=== PATIENT | female | born 1950 | race Caucasian/White ===

== ENCOUNTER → 2016-11-11 | Outpatient (CLI) | payer MEDICARE, MEDICAID ==
[~2016-11-11] MED LIST: ACET325T9 PO; DIPH25CA58 PO; EXEM25TA PO; LORA0.5P MC; OMEP20CA9 PO; P EP PO; TRAM50TA PO
--- NOTE | 2016-11-11 09:25 | RAD ---
DATE: 11/11/2016 EXAM: MAMMO REINA SCREEN LT HISTORY: Right breast cancer COMPARISON: 11/09/2015 This study was interpreted with the benefit of Computerized Aided Detection (CAD). The breast parenchyma shows scattered fibroglandular densities. Breast parenchyma level B. FINDINGS: 2-D and 3-D tomosynthesis imaging was performed in CC and MLO projections. No new or enlarging breast densities are seen. Benign type calcifications are present. No suspicious microcalcifications have developed. IMPRESSION: Stable left mammograms without evidence of malignancy. BI-RADS CATEGORY: 2 BENIGN FINDING(S) RECOMMENDED FOLLOW-UP: 12M 12 MONTH FOLLOW-UP PQRS compliance statement: Patient information was entered into a reminder system with a target due date for the next mammogram. Mammography is a sensitive method for finding small breast cancers, but it does not detect them all and is not a substitute for careful clinical examination. A negative mammogram does not negate a clinically suspicious finding and should not result in delay in biopsying a clinically suspicious abnormality. "Our facility is accredited by the [employer] Mammography [employer]."
== END | disposition home or self-care (01) ==
LOC: MAMMO 08:49
PROVIDERS: ATTEND Family Medicine
DX: Z12.31 Encounter for screening mammogram for malignant neoplasm of breast (principal); C50.911 Malignant neoplasm of unspecified site of right female breast
CPT/HCPCS: 77063; G0202; 77067

== ENCOUNTER → 2017-11-21 | Outpatient (CLI) | payer MEDICARE, MEDICAID ==
--- NOTE | 2017-11-21 14:09 | RAD ---
DATE: 11/21/2017 EXAM: MAMMO REINA SCREEN LT HISTORY: Right breast cancer, left breast screening COMPARISON: 11/11/2016 This study was interpreted with the benefit of Computerized Aided Detection (CAD). The breast parenchyma shows scattered fibroglandular densities. Breast parenchyma level B. FINDINGS: 2-D and 3-D tomosynthesis imaging was performed in CC and MLO projections. No new or enlarging breast densities are seen. Several benign type calcifications are present. No suspicious microcalcifications have developed. IMPRESSION: Stable left mammograms without evidence of malignancy. BI-RADS CATEGORY: 2 BENIGN FINDING(S) RECOMMENDED FOLLOW-UP: 12M 12 MONTH FOLLOW-UP PQRS compliance statement: Patient information was entered into a reminder system with a target due date for the next mammogram. Mammography is a sensitive method for finding small breast cancers, but it does not detect them all and is not a substitute for careful clinical examination. A negative mammogram does not negate a clinically suspicious finding and should not result in delay in biopsying a clinically suspicious abnormality. "Our facility is accredited by the [employer]."
== END | disposition home or self-care (01) ==
LOC: MAMMO 10:03
PROVIDERS: ATTEND Family Medicine
DX: Z12.31 Encounter for screening mammogram for malignant neoplasm of breast (principal); Z85.3 Personal history of malignant neoplasm of breast; Z86.2 Personal history of diseases of the blood and blood-forming organs and certain disorders involving the immune mechanism
CPT/HCPCS: 77063; 77067

== ENCOUNTER → 2018-12-12 | Outpatient (CLI) | payer MEDICARE, MEDICAID ==
[~2018-12-12] MED LIST changes: +OMEP20CA10 PO; -OMEP20CA9 PO
--- NOTE | 2018-12-14 17:27 | RAD ---
Examination: MAMMO REINA SCREEN LT History: Right mastectomy in 2008. Annual screening. COMPARISON/CORRELATION: 11/06/2014, 11/03/2016, 11/21/2017 left unilateral screening mammogram FINDINGS: Full-field digital screening mammography was performed bilaterally. MLO and CC projections bilaterally were provided. CAD and tomosynthesis were performed. There are scattered areas of fibroglandular density. Benign appearing axillary lymph node(s) are present. There are no suspicious calcification clusters. No new masses or new distortion. IMPRESSION: BI-RADS Category: 1: Negative. Annual mammography is recommended. Patient information is entered into reminder system with a target due date for the next screening mammogram. Mammography is the most sensitive method for finding small breast cancers, but it does not detect them all and is not a substitute for careful clinical examination. A negative mammogram does not negate a clinically suspicious finding and should not result in delay in biopsying a clinically suspicious abnormality. "Our facility is accredited by the [employer]amm[employer]." Electronically signed by: Eduard Dan MD (12/14/2018 5:24 PM) [facility]
== END | disposition home or self-care (01) ==
LOC: MAMMO 09:46
PROVIDERS: ATTEND Family Medicine
DX: Z12.31 Encounter for screening mammogram for malignant neoplasm of breast (principal)
CPT/HCPCS: 77063; 77067

== ENCOUNTER → 2020-01-16 | Outpatient (CLI) | payer MEDICARE, MEDICAID ==
[~2020-01-16] MED LIST changes: -OMEP20CA10 PO; +OMEP20CA16 PO
--- NOTE | 2020-01-16 18:18 | RAD ---
EXAMINATION: MAMMO REINA SCREEN LT History: Reason: SCREENING MAMMOGRAM 3D /right mastectomy in 2008 COMPARISON/CORRELATION: 11/09/2015, 11/03/2016, 11/21/2017, 12/13/2018 Technique: Routine left unilateral digital mammogram views were obtained. CAD was utilized. 3-D tomosynthesis images were acquired. Findings: Breast Tissue Density B : There are scattered areas of fibroglandular density. There are no dominant masses, suspicious microcalcifications, or architectural distortion. IMPRESSION: No mammographic evidence of malignancy. Recommend routine screening. BI-RADS category 1: Negative. The images were reviewed with computer aided detection. Patient information is entered into the reminder system with a target due date for the next screening mammogram. Mammography is the most sensitive method for finding small breast cancers, but it does not detect them all and is not a substitute for careful clinical examination. A negative mammogram does not negate a clinically suspicious finding and should not result in delay in biopsying a clinically suspicious abnormality. "Our facility is accredited by the [employer] Mammography [employer] Electronically signed by: Eduard Dan MD (01/16/2020 6:14 PM) [facility]
== END | disposition home or self-care (01) ==
LOC: MAMMO 14:06
PROVIDERS: ATTEND Family Medicine
DX: Z12.31 Encounter for screening mammogram for malignant neoplasm of breast (principal); Z90.11 Acquired absence of right breast and nipple
CPT/HCPCS: 77063; 77067

== ENCOUNTER → 2021-01-18 | Outpatient (CLI) | payer MEDICARE, MEDICAID ==
--- NOTE | 2021-01-18 09:30 | RAD ---
EXAM: Left breast screening mammogram with tomosynthesis. HISTORY: 70-year-old female with a history of right breast cancer, status post right mastectomy, pres ents for annual mammography. TECHNIQUE: Full-field digital craniocaudal and mediolateral oblique 2D and 3D tomosynthesis images of the left breast are obtained for evaluation. Computer aided detection was applied. COMPARISON: 01/16/2020 and 12/12/2018 BREAST PARENCHYMAL DENSITY: Level B - Scattered fibroglandular densities. FINDINGS: There is no new suspicious mass, microcalcification or region of architectural distortion. IMPRESSION: BI-RADS Category 2: Benign finding(s). RECOMMENDATION: Annual mammography is recommended. If your mammogram demonstrates that you have dense breast tissue, which could hide abnormalities, and if you have other risk factors for breast cancer that have been identified, you might benefit from s upplemental screening tests that may be suggested by your ordering physician. Dense breast tissue, i n and of itself, is a relatively common condition. This information is not provided to cause undue c oncern, but rather to raise your awareness and to promote discussion with your physician regarding th e presence of other risk factors, in addition to dense breast tissue. A report of your mammography re sults will be sent to you and your physician. You should contact your physician if you have any ques tions or concerns regarding this report. Mammography is a sensitive method for finding small breast cancers, but it does not detect them all a nd is not a substitute for careful clinical examination. A negative mammogram does not negate a clin ically suspicious finding and should not result in delay in biopsying a clinically suspicious abnorma lity. PQRS compliance statement - Patient information was entered into a reminder system with a target due date for the next mammogram. "Our facility is accredited by the [employer] Mammography [employer]." Electronically signed by: Karrie Cross MD (01/18/2021 9:27 AM) [id number]
== END ==
LOC: MAMMO 08:46
PROVIDERS: ATTEND Family Medicine
DX: Z12.31 Encounter for screening mammogram for malignant neoplasm of breast (principal)
CPT/HCPCS: 77063; 77067

== ENCOUNTER → 2021-02-18 | Outpatient (CLI) | payer MEDICARE, MEDICAID ==
[2021-02-18 09:54] LABS: BASO # 0.2 x10^3/uL (0.0-0.2); BASO % 2 % (0-3); EOS # 0.6 x10^3/uL (0.0-0.7); EOS % 7 % (0-3); HEMATOCRIT 39.6 % (36.0-47.0); HEMOGLOBIN 13.5 g/dL (12.0-15.5); LYMPH # 2.6 x10^3/uL (1.0-4.8); LYMPH % 30 % (24-48); MEAN CORPUSCULAR HEMOGLOBIN 29 pg (25-35); MEAN CORPUSCULAR HGB CONC 34 g/dL (31-37); MEAN CORPUSCULAR VOLUME 86 fL (79-100); MONO # 0.6 x10^3/uL (0.0-1.1); MONO % 6 % (0-9); NEUT # 4.9 x10^3uL (1.8-7.7); NEUT % 56 % (31-73); PLATELET COUNT 278 x10^3/uL (140-400); RED BLOOD COUNT 4.58 x10^6/uL (3.50-5.40); RED CELL DISTRIBUTION WIDTH 13.5 % (11.5-14.5); WHITE BLOOD COUNT 8.8 x10^3/uL (4.0-11.0)
[2021-02-18 09:55] LABS: ALBUMIN 3.9 g/dL (3.4-5.0); ALBUMIN/GLOBULIN RATIO 1.1 (1.0-1.7); CALCIUM 9.3 mg/dL (8.5-10.1); GFR 54.7; POTASSIUM 3.6 mmol/L (3.5-5.1); TOTAL BILIRUBIN 0.3 mg/dL (0.2-1.0); TOTAL PROTEIN 7.3 g/dL (6.4-8.2)
[2021-02-18 15:21] LABS: THYROID STIM HORMONE (TSH) 3.705 uIU/mL (0.358-3.740)
== END ==
LOC: LAB 08:21
PROVIDERS: ATTEND Family Medicine
DX: C50.911 Malignant neoplasm of unspecified site of right female breast (principal); I51.7 Cardiomegaly; R94.5 Abnormal results of liver function studies; R06.09 Other forms of dyspnea
CPT/HCPCS: 36415; 80053; 80061; 84443; 85025

== ENCOUNTER 2021-08-24 16:23 | Emergency (ER) | payer MEDICARE, MEDICAID ==
[~2021-08-24] VITALS: Ht 160 cm; Wt 79.0 kg
[2021-08-24 16:27] VITALS: BP 112/59
[2021-08-24] MEDS ORDERED: IV NORMAL SALINE 500ML 500 ML IV ONE (17:00)
--- NOTE | 2021-08-24 17:10 | EKG ---
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
--- NOTE | 2021-08-24 17:26 | PHYS DOC ---
Past History Past Surgical History: Cancer Surgery Additional Past Surgical Histo: R side masectomy Adult General Chief Complaint Chief Complaint: ALTERED MENTAL STATUS HPI HPI Patient was standing outside in line for [employer] in the heat when she began to tell her family that she needed to find shade and that she was getting too hot. The patient then believes that she "wilted", and fell to the ground. Patient states she believes she was able to lower self to the ground slowly withou significant injury. Family states patient did have short 10-second body shaking after falling to the ground, and did have some sonorous breathing for a few moments after, family states they believe the patient returned to baseline mental status after 5 to 10 minutes. No loss of bowel or bladder. Patient currently denies complaints, stating she feels at her baseline and that she just got too hot and she believes that was the cause of her symptoms. Patient denies any chest pain no palpitations, states she did have a episode similar years ago when getting too hot. Review of Systems Review of Systems Constitutional: Denies fever or chills [] Eyes: Denies change in visual acuity, redness, or eye pain [] HENT: Denies nasal congestion or sore throat [] Respiratory: Denies cough or shortness of breath [] Cardiovascular: Syncope, no chest pain no palpitations GI: Denies abdominal pain, nausea, vomiting, bloody stools or diarrhea [] : Denies dysuria or hematuria [] Musculoskeletal: Denies back pain or joint pain [] Integument: Denies rash or skin lesions [] Neurologic: Denies headache, focal weakness or sensory changes [] Endocrine: Denies polyuria or polydipsia [] All other systems were reviewed and found to be within normal limits, except as documented in this note. Current Medications Current Medications Current Medications Medications (Trade) Dose Ordered Sig/Maral Start Time Stop Time Status Last Admin Dose Admin Sodium Chloride 500 ml @ 0 mls/hr 1X ONCE 08/24/21 17:00 08/24/21 17:01 DC Allergies Allergies Allergies Coded Allergies Type Severity Reaction Last Updated Verified iodine Allergy Unknown Hives 11/06/14 Yes Physical Exam Physical Exam Constitutional: Well developed, well nourished, no acute distress, non-toxic appearance. [] HENT: Normocephalic, atraumatic, bilateral external ears normal, oropharynx moist, no oral exudates, nose normal. [] Eyes: PERRLA, EOMI, conjunctiva normal, no discharge. [] Neck: Normal range of motion, no tenderness, supple, no stridor. [] Cardiovascular:Heart rate regular rhythm, no murmur [] Lungs & Thorax: Bilateral breath sounds clear to auscultation [] Abdomen: Bowel sounds normal, soft, no tenderness, no masses, no pulsatile masses. [] Skin: Warm, dry, no erythema, no rash. [] Back: No tenderness, no CVA tenderness. [] Extremities: No tenderness, no cyanosis, no clubbing, ROM intact, no edema. [] Neurologic: Alert and oriented X 3, normal motor function, normal sensory function, no focal deficits noted. [] Psychologic: Affect normal, judgement normal, mood normal. [] Current Patient Data Vital Signs Vital Signs Date Time Temp Pulse Resp B/P (MAP) Pulse Ox O2 Delivery O2 Flow Rate FiO2 08/24/21 16:27 98.0 84 18 112/59 (76) 95 Room Air EKG EKG Normal sinus rhythm, rate 81, no ST changes no QT prolongation no widened QRS [] Radiology/Procedures Radiology/Procedures [] Heart Score C/O Chest Pain: No Risk Factors: Risk Factors: DM, Current or recent (<one month) smoker, HTN, HLP, family history of CAD, obesity. Risk Scores: Risk Factors: DM, Current or recent (<one month) smoker, HTN, HLP, family h istory of CAD, obesity. Course & Med Decision Making Course & Med Decision Making Patient with syncope versus seizure, some seizure-like activity reported, but overall history seems more consistent with likely syncopal episode as the patient was standing outside on a very warm and humid day. Patient will get IV fluids, full lab evaluation and given possible fall and head injury as well as possible seizure-like activity we will get CT head [] 1812-patient with labs and imaging pending at the time of checkout to Dr. Waters. Alice Disclaimer Alice Disclaimer This electronic medical record was generated, in whole or in part, using a voice recognition dictation system. Departure Departure: Referrals: SELENA DOAN MD (PCP) VINAY SAUL MD August 24, 2021 17:26
--- NOTE | 2021-08-24 17:36 | RAD ---
EXAM: CT Head without IV contrast CLINICAL HISTORY: Syncope, head injury COMPARISON: 11/13/2014 TECHNIQUE: Routine CT of the head without contrast. PQRS compliance statement - One or more of the following individualized dose reduction techniques wer e utilized for this study: 1. Automated exposure control 2. Adjustment of the mA and/or kV according to patient size 3. Use of iterative reconstruction technique FINDINGS: There is no evidence of hemorrhage, mass or extra-axial fluid collection. Bennett-white differentiation is maintained with no evidence of edema. Subcortical, periventricular as w ell as deep white matter foci of hypoattenuation likely changes of chronic small vessel disease. There is no mass effect or shift of the intracranial structures. The ventricles, basilar cisterns and cortical sulci are normal in size and configuration for the beryl ents stated age. The cerebellum and brainstem are unremarkable. The calvarium demonstrates no evidence of fracture or focal lesion. There is normal aeration of the visualized paranasal sinuses and mastoid air cells. The visualized portions of the orbits are normal. IMPRESSION: 1. No evidence for acute intracranial process. 2. White matter changes likely chronic small vessel disease. Electronically signed by: Devon Helms MD (08/24/2021 5:34 PM) [facility]
[2021-08-24 18:11] LABS: BASO # 0.1 x10^3/uL (0.0-0.2); BASO % 2 % (0-3); EOS # 0.3 x10^3/uL (0.0-0.7); EOS % 4 % (0-3); HEMATOCRIT 35.1 % (36.0-47.0); HEMOGLOBIN 11.9 g/dL (12.0-15.5); LYMPH # 1.6 x10^3/uL (1.0-4.8); LYMPH % 20 % (24-48); MEAN CORPUSCULAR HEMOGLOBIN 30 pg (25-35); MEAN CORPUSCULAR HGB CONC 34 g/dL (31-37); MEAN CORPUSCULAR VOLUME 89 fL (79-100); MONO # 0.4 x10^3/uL (0.0-1.1); MONO % 5 % (0-9); NEUT # 5.5 x10^3uL (1.8-7.7); NEUT % 70 % (31-73); PLATELET COUNT 233 x10^3/uL (140-400); RED BLOOD COUNT 3.94 x10^6/uL (3.50-5.40); RED CELL DISTRIBUTION WIDTH 13.1 % (11.5-14.5); WHITE BLOOD COUNT 7.9 x10^3/uL (4.0-11.0)
[2021-08-24 18:13] LABS: CALCIUM 8.5 mg/dL (8.5-10.1); CREATININE 1.1 mg/dL (0.6-1.0); GFR 48.8; POTASSIUM 3.3 mmol/L (3.5-5.1)
[2021-08-24 18:24] LABS: CLARITY,URINE CLEAR; COLOR,URINE YELLOW
[2021-08-24 18:25] LABS: BACTERIA,URINE FEW /HPF (0-FEW); GLUCOSE,URINE NEG (NEG); NITRITE,URINE NEG (NEG); RBC,URINE OCC /HPF (0-2); SQUAMOUS EPITHELIAL CELL,UR MOD /LPF; UROBILINOGEN,URINE 0.2 mg/dL (0.2 mg/dL)
== END 2021-08-24 19:55 | disposition left against medical advice (07) ==
LOC: ER 16:23
DX: R55 Syncope and collapse (principal); D64.9 Anemia, unspecified; E87.6 Hypokalemia; E86.0 Dehydration; E11.9 Type 2 diabetes mellitus without complications; R94.4 Abnormal results of kidney function studies; Z88.8 Allergy status to other drugs, medicaments and biological substances
CPT/HCPCS: 36415; 70450; 80048; 81001; 82550; 84484; 85025; 93005; 96360; 99285; J7040